=== PATIENT | female | born 1995 | race Two or more races ===

== ENCOUNTER → 2024-02-15 09:36 | Outpatient (CLI) | payer OTHER | END | disposition home or self-care (01) | LOC: PRENATAL 09:36 | PROVIDERS: ATTEND Obstetrics & Gynecology Maternal & Fetal Medicine | DX: O26.849 Uterine size-date discrepancy, unspecified trimester (principal); O36.8199 Decreased fetal movements, unspecified trimester, other fetus; O36.5990 Maternal care for other known or suspected poor fetal growth, unspecified trimester, not applicable or unspecified; Z3A.28 28 weeks gestation of pregnancy ==

== ENCOUNTER → 2024-03-07 | Outpatient (CLI) | payer OTHER | END | disposition home or self-care (01) | LOC: PRENATAL 13:10 | PROVIDERS: ATTEND Obstetrics & Gynecology Maternal & Fetal Medicine | DX: O26.849 Uterine size-date discrepancy, unspecified trimester (principal); O36.8199 Decreased fetal movements, unspecified trimester, other fetus; O36.5990 Maternal care for other known or suspected poor fetal growth, unspecified trimester, not applicable or unspecified; Z3A.30 30 weeks gestation of pregnancy ==

== ENCOUNTER → 2024-03-28 | Outpatient (CLI) | payer OTHER | END | disposition home or self-care (01) | LOC: PRENATAL 14:26 | PROVIDERS: ATTEND Obstetrics & Gynecology Maternal & Fetal Medicine | DX: O26.849 Uterine size-date discrepancy, unspecified trimester (principal); O36.8199 Decreased fetal movements, unspecified trimester, other fetus; O36.5990 Maternal care for other known or suspected poor fetal growth, unspecified trimester, not applicable or unspecified; Z3A.33 33 weeks gestation of pregnancy ==

== ENCOUNTER 2024-04-05 13:46 | Outpatient (CLI) | payer OTHER ==
[2024-04-05 13:39] VITALS: BP 114/71
[2024-04-05] MEDS ORDERED: PRENATAL TABLE1 EAC1 PO (14:15)
[2024-04-05] MEDS ORDERED: BONJESTA ER 201 EACH PO (14:59)
[2024-04-05 15:27] VITALS: BP 107/56
[2024-04-05 15:45] VITALS: BP 107/56
== END 2024-04-05 15:45 | disposition home or self-care (01) ==
LOC: OBS/DEL 13:46
PROVIDERS: ATTEND Obstetrics & Gynecology
DX: O36.8130 Decreased fetal movements, third trimester, not applicable or unspecified (principal); Z3A.36 36 weeks gestation of pregnancy; O36.8199 Decreased fetal movements, unspecified trimester, other fetus; O36.5990 Maternal care for other known or suspected poor fetal growth, unspecified trimester, not applicable or unspecified

== ENCOUNTER 2024-04-22 07:09 | Inpatient (IN) | payer OTHER ==
[2024-04-11 12:29] LABS: PH,URINE 7.5 (5.0-8.0); URINE APPEARANCE Clear; URINE BILIRRUBIN Negative (NEGATIVE); URINE BLOOD Negative; URINE COLOR Yellow; URINE GLUCOSE Negative (NEGATIVE); URINE KETONE Negative (NEGATIVE); URINE LEUKOCYTE Small; URINE NITRATE Negative; URINE PROTEIN Negative (NEGATIVE); URINE UROBILINOGEN 0.2 E.U./dl
[2024-04-11 12:33] LABS: URINE EPITHELIAL CELLS 53.1 uL (0.0-38.8); URINE WBC 101.1 uL (0.0-23.2)
[2024-04-11 12:33] LABS: HEMATOCRIT 30.8 % (36.0-45.00); MEAN CELL VOLUME 89.7 fL (80.00-100.00); MEAN CORPUSCULAR HGB CONC 34.6 g/dl (32.0-36.0); PLATELET COUNT 156 K/uL (150-450); RED BLOOD COUNT 3.44 M/uL (4.00-6.00); RED CELL DISTRIBUTION WIDTH 11.8 % (11.5-14.5)
[2024-04-11 12:47] LABS: URINE CAST 1.17 uL (0.0-1.40); URINE RBC 1.3 uL (0.0-20.8)
[2024-04-11 12:49] LABS: HEMOGLOBIN 10.7 g/dL (12.0-15.00); MEAN CORPUSCULAR HEMOGLOBIN 31.1 pg (27.00-32.0)
[2024-04-11 13:02] LABS: INR < 0.93; PARTIAL THROMBOPLASTIN TIME 27.3 SECONDS (22.0-34.0); PROTHROMBIN TIME 10.1 SECONDS (9.0-11.5)
[2024-04-11 13:21] LABS: ALBUMIN 3.2 gm/dL (3.4-5.0); BILIRUBIN TOTAL 0.29 mg/dL (0.3-1.2); CALCIUM 8.9 mg/dL (8.5-10.1); CREATININE SERUM 0.5 mg/dL (0.55-1.02); GFR 149.14; GLOBULINA 3.3 G/DL (2.4-3.5); POTASSIUM 3.95 mEq/L (3.5-5.1); TOTAL PROTEIN 6.5 gm/dL (6.4-8.2)
[~2024-04-22] VITALS: Ht 160 cm; Wt 68.0 kg
[~2024-04-22 07:09] MED LIST: BONJESTA ER 201 EACH PO; PRENATAL TABLE1 EAC1 PO
[2024-04-22 08:20] VITALS: BP 120/62
[2024-04-22] MEDS ORDERED: MISOPROSTOL 25 MCG/4 ML GEL.W.APPL VAG STA (08:47)
[2024-04-22] MEDS ORDERED: AMPICILLIN SODIUM 2,000 MG VIAL ONE (08:48)
[2024-04-22 09:00] LABS: HEMATOCRIT 30.7 % (36.0-45.00); HEMOGLOBIN 10.6 g/dL (12.0-15.00); MEAN CELL VOLUME 89.6 fL (80.00-100.00); MEAN CORPUSCULAR HEMOGLOBIN 30.9 pg (27.00-32.0); MEAN CORPUSCULAR HGB CONC 34.5 g/dl (32.0-36.0); PLATELET COUNT 168 K/uL (150-450); RED BLOOD COUNT 3.43 M/uL (4.00-6.00)
[2024-04-22] MEDS ORDERED: AMPICILLIN SODIUM 2,000 MG VIAL IV SCH (09:00)
[2024-04-22] MEDS ORDERED: RINGERS SOLUTION,LACTATED 1,000 ML IV SCH (09:00)
[2024-04-22 09:35] LABS: URINE APPEARANCE Clear; URINE BILIRRUBIN Negative (NEGATIVE); URINE BLOOD Negative; URINE COLOR Yellow; URINE GLUCOSE Negative (NEGATIVE); URINE KETONE Trace (NEGATIVE); URINE LEUKOCYTE Trace; URINE NITRATE Negative; URINE PROTEIN Trace (NEGATIVE)
[2024-04-22 09:40] LABS: URINE BACTERIA 205.6 uL (0.0-1933); URINE EPITHELIAL CELLS 21.6 uL (0.0-38.8); URINE RBC 2.3 uL (0.0-20.8); URINE WBC 6.4 uL (0.0-23.2)
[2024-04-22 09:49] LABS: INR < 0.93; PARTIAL THROMBOPLASTIN TIME 26.2 SECONDS (22.0-34.0)
[2024-04-22 10:02] LABS: URINE CAST 1.17 uL (0.0-1.40); URINE MUCUS MODERATE
[2024-04-22 10:19] VITALS: BP 129/74
[2024-04-22 10:37] LABS: BILIRUBIN TOTAL 0.29 mg/dL (0.3-1.2); CREATININE SERUM 0.59 mg/dL (0.55-1.02); GFR 123.21; GLOBULINA 3.5 G/DL (2.4-3.5); POTASSIUM 3.69 mEq/L (3.5-5.1); TOTAL PROTEIN 6.5 gm/dL (6.4-8.2)
[2024-04-22] MEDS ORDERED: OXYTOCIN 20 UNITS/500ML RL PIGGYBAG IV ONE (12:46)
[2024-04-22] MEDS ORDERED: OXYTOCIN 500 ML IV SCH (13:30)
[2024-04-22 15:20] VITALS: BP 115/54
[2024-04-22 20:30] VITALS: BP 133/78
[2024-04-22 20:50] VITALS: BP 136/59
[2024-04-22] MEDS ORDERED: ERYTHROMYCIN BASE OPHT 1GM EACH TUBE OP ONE (21:59)
[2024-04-22] MEDS ORDERED: OXYTOCIN 20 UNITS/1000ML RL PIGGYBAG IV ONE (21:59)
[2024-04-22] MEDS ORDERED: CHLORHEXIDINE GLUCONATE 120 ML BOTTLE TOP ONE (21:59)
[2024-04-22] MEDS ORDERED: OXYTOCIN 10 UNITS/ML VIAL ONE (22:00)
[2024-04-22] MEDS ORDERED: LIDOCAINE HCL 1% 10ML VIAL ONE (22:00)
[2024-04-22] MEDS ORDERED: CARBOPROST TROMETHAMINE 250 MCG/ML AMPUL IM ONE (22:41)
[2024-04-22] MEDS ORDERED: OXYTOCIN 10 UNITS/ML VIAL IV ONE (23:00)
[2024-04-22] MEDS ORDERED: CARBOPROST TROMETHAMINE 250 MCG/ML AMPUL IM PRN (23:00)
[2024-04-22] MEDS ORDERED: OXYTOCIN 1,000 ML IV SCH (23:15)
[2024-04-22] MEDS ORDERED: OXYTOCIN 10 UNITS/ML VIAL IM STA (23:15)
[2024-04-22] MEDS ORDERED: CHLORHEXIDINE GLUCONATE 120 ML BOTTLE TP SCH (23:15)
[2024-04-22] MEDS ORDERED: IBUprofen 400 MG TABLET PO PRN (23:15)
[2024-04-22 23:16] VITALS: BP 146/89
[2024-04-23 01:41] VITALS: BP 110/69
[2024-04-23 04:27] LABS: HEMATOCRIT 29.3 % (36.0-45.00); HEMOGLOBIN 10.1 g/dL (12.0-15.00); MEAN CELL VOLUME 88.7 fL (80.00-100.00); MEAN CORPUSCULAR HEMOGLOBIN 30.6 pg (27.00-32.0); MEAN CORPUSCULAR HGB CONC 34.5 g/dl (32.0-36.0); PLATELET COUNT 148 K/uL (150-450)
[2024-04-23 08:24] VITALS: BP 90/60; O2SAT 97
[2024-04-23 16:05] VITALS: BP 102/62
[2024-04-24] VITALS: BP 100/63
[2024-04-24 08:47] VITALS: BP 120/71
== END 2024-04-24 10:06 | disposition home or self-care (01) | DRG 807 ==
LOC: SURH → LDR 07:09 → SURH 11:28 → OB/GYN 04-23 01:33
PROVIDERS: ADMIT Obstetrics & Gynecology; ATTEND Obstetrics & Gynecology
PROC: 10E0XZZ Delivery of Products of Conception, External Approach (ICD-10-PCS; principal; 2024-04-22)
PROC: 0HQ9XZZ Repair Perineum Skin, External Approach (ICD-10-PCS; 2024-04-22)
PROC: 0UQMXZZ Repair Vulva, External Approach (ICD-10-PCS; 2024-04-22)
PROC: 3E033VJ Introduction of Other Hormone into Peripheral Vein, Percutaneous Approach (ICD-10-PCS; 2024-04-22)
PROC: 3E0P7VZ Introduction of Hormone into Female Reproductive, Via Natural or Artificial Opening (ICD-10-PCS; 2024-04-22)
PROC: 4A1HXCZ Monitoring of Products of Conception, Cardiac Rate, External Approach (ICD-10-PCS; 2024-04-22)
DX: O70.0 First degree perineal laceration during delivery (principal); O71.82 Other specified trauma to perineum and vulva; O36.5930 Maternal care for other known or suspected poor fetal growth, third trimester, not applicable or unspecified; Z37.0 Single live birth; Z3A.39 39 weeks gestation of pregnancy